=== PATIENT | male | born 1990 | race Caucasian/White ===

== ENCOUNTER 2019-06-30 16:31 | Observation (INO) | payer OTHER ==
[2019-06-30 18:08] LABS: BASO % 0.5 % (0-2.0); EOS % 0.4 % (0-4.5); HEMATOCRIT 43.3 % (35.4-49); HEMOGLOBIN 14.4 GM/dL (11.7-16.9); LYMPH % 10.8 % (8-40); MCH 30.2 pg (25.7-33.7); MCHC 33.3 g/dl (32.0-35.9); MEAN CELL VOLUME 90.6 fl (80-96); MEAN PLT VOLUME 8.4 fl (7.5-11.1); MONO % 6.8 % (3.8-10.2); NEUT % 81.5 % (42.8-82.8); PLATELET COUNT 218 K/MM3 (134-434); RBC 4.78 M/mm3 (4.00-5.60); RDW 13.5 % (11.9-15.9); WHITE BLOOD COUNT 11.8 K/mm3 (4.0-10.0)
--- NOTE | 2019-06-30 18:11 | PDOC ---
History of Present Illness - General Chief Complaint: Syncope/Near Syncope Stated Complaint: POSSIBLE SEIZURE Time Seen by Provider: 06/30/19 17:23 History Source: Patient, Family (Mother at bedside.) Exam Limitations: No Limitations - History of Present Illness Initial Comments: HPI: 29 y/o male presenting to [facility] ER from home after witnessed syncopal episode. Mother (at bedside) reports she and her son were eating dinner when he suddenly fell backward off the bar stool. His eyes rolled back in his head and closed. Did not observed any shaking of extremities, urinary incontinence, or fecal incontinence. Appeared to lose muscle tone. Unconscious for an estimated 1 min before immediately returning to baseline; alert and oriented. Able to stand and transition to the EMS stretcher. Pt denies any prodromal symptoms. Denies tongue trauma, nausea, vomiting, chest pain, or shortness of breath. At time of interview, the pts only complaint is pain to his occiput where he struck his head. Denies neck pain. Mother reports the pt had another episode that we call a seizure several years ago, which was believed to be secondary to a psychiatric medication adverse reaction. Social Hx: - EtoH: Drank 3 liquor drinks today - Street Drugs: Smoked marijuana approx. 15 min prior to episode - Caffeine: drank one beverage today - Denies OTC vitamins or supplements Family Hx: - No h/o seizures - No h/o cardiac arrhythmias - No h/o sudden before age 34 - No h/o sudden while swimming Medical Hx: - Bipolar disorder, managed with Risperdal injection, no change in dose, last injection approx. 1 month ago Surgical Hx: - No past surgical history Review of Systems: In addition to that documented in the HPI above, the additional ROS was obtained : Constitutional- Denies fevers or chills Head- Denies vision changes ENMT- Denies sore throat CV- Denies chest pain Resp- Denies SOB GI- Denies abdominal pain, vomiting, or diarrhea - Denies painful urination MSK- Endorses pain to back of head Skin- Denies new rashes Neuro- Denies new numbness or tingling or weakness Endocrine- Denies polyuria Heme- Denies bleeding or bruising Physical Examination: Vital signs and nursing notes reviewed. Constitutional- Well-developed, well-nourished adult male in no acute distress or obvious discomfort. Found semi-fowlers on hospital bed. Answered all questions appropriately and completely. Head- Normocephalic. Superficial abrasion to occiput. No active bleeding. Eyes- Pupils PERRL. EOMI. Sclerae white. Conjunctiva moist and not injected. Ears- Hearing grossly intact. Nose- No nasal discharge. Throat- Oral cavity and pharynx normal. No tongue trauma. No inflammation, swelling, exudate, or lesions. Teeth and gingiva in poor general condition. Neck- Supple, trachea is midline. No c-spine tenderness. Pt able to laterally rotate neck to left and right without difficulty or pain. Cardiovascular / Chest- Regular rate and regular rhythm. No murmur, rubs, clicks , or gallops. Peripheral pulses- radial pulses full. Respiratory- Breathing unlabored. Equal chest rise and fall. Clear to auscultation bilaterally. No stridor, no wheezing, no rhonchi. Gastrointestinal- abdomen is soft, non-tender, non-distended. Neuro- Alert and oriented x4. Moving all four extremities spontaneously. No facial asymmetry. No slurred speech. No upper or lower extremity drift. Cranial nerves intact. Sensation to all four extremities intact. Proximal and distal strength 5/5. Inspector Returned Materials strength 5/5 - equal and symmetric. Plantar flexion and dorsiflexion 5/5. No nuchal rigidity. Skin- Warm, dry, and intact. Psych- Affect- appropriate. Mood- normal. Speech was non-labored, non- pressured. MDM: 29 y/o male presenting with drop syncope. No h/o of similar. Afebrile. Vitals unremarkable for hypotension or tachycardia. Physical exam as described above. Low suspicion for seizure based on description by witness. Concern for possible cardiac arrhythmia given lack of prodromal symptoms. EKG unremarkable for ischemic findings, prolonged QTc, shortened LA interval, or delta waves. Troponin not elevated. No significant electrolyte derangement, anemia, or leukocytosis. 30 Jun 2019 19:00 PM Pt signed out to resident Dr. Ziegler after he was verbally appraised of the pts HPI, current ED course, and plan of management. Will f/u pending HCT. Anticipate admission for telemetry monitoring. Nelson Galeana M.D., PGY2 Emergency Medicine Resident Past History - Past Medical History Allergies/Adverse Reactions: Allergies Allergy/AdvReac Type Severity Reaction Status Date / Time No Known Allergies Allergy Verified 06/30/19 18:42 Home Medications: Ambulatory Orders Risperdal MONTHLY 06/30/19 COPD: No Psychiatric Problems: Yes (bipolar) - Immunization History Immunization Up to Date: Yes - Psycho Social/Smoking Cessation Hx Smoking History: Never smoked Have you smoked in the past 12 months: No Information on smoking cessation initiated: No Hx Alcohol Use: Yes (occasional) Drug/Substance Use Hx: Yes (occasional marijuana use) *Physical Exam - Vital Signs Last Vital Signs Temp Pulse Resp BP Pulse Ox 98.1 F 91 H 18 118/74 99 06/30/19 16:39 06/30/19 16:39 06/30/19 16:39 06/30/19 16:39 06/30/19 16:39 ED Treatment Course - LABORATORY CBC & Chemistry Diagram: 06/30/19 18:01 06/30/19 18:01 - RADIOLOGY Radiology Studies Ordered: Category Date Time Status HEAD CT WITHOUT CONTRAST [CT] Stat CT Scan 06/30/19 17:45 Ordered Discharge - Discharge Information Problems reviewed: Yes Clinical Impression/Diagnosis: Syncope and collapse Head injury due to trauma Qualifiers: Encounter type: initial encounter Qualified Code(s): S09.90XA - Unspecified injury of head, initial encounter Condition: Stable - Follow up/Referral - Patient Discharge Instructions - Post Discharge Activity
[2019-06-30 18:48] LABS: ALBUMIN 4.1 g/dl (3.4-5.0); ALK PHOS 56 U/L (45-117); ANION GAP 7 MMOL/L (8-16); BILIRUBIN,TOTAL 0.4 mg/dL (0.2-1); BLOOD UREA NITROGEN 10.3 mg/dL (7-18); CALCIUM 8.6 mg/dL (8.5-10.1); CHLORIDE 111 mmol/L (98-107); CO2 24 mmol/L (21-32); GLUCOSE,RANDOM 98 mg/dL (74-106); SGOT/AST 19 U/L (15-37); SGPT/ALT 23 U/L (13-61); SODIUM 142 mmol/L (136-145); TOT PROT 6.9 g/dl (6.4-8.2)
--- NOTE | 2019-06-30 19:17 | PDOC ---
ED Treatment Course - LABORATORY CBC & Chemistry Diagram: 06/30/19 18:01 06/30/19 18:01 Medical Decision Making - Medical Decision Making Pt signed out to me by Dr. Galeana, appreciate prior note. 29 yo male with PMH bipolar disorder presented to ED for witnessed syncopal event. It was reported pt drank 3 alcoholic beverages and smoked weed, then had a witness syncopal event lasting 1 minute. It was reported pt was not postictal , no tongue biting, no loss of bowel/bladder. Initial Vital Signs Temp Pulse Resp BP Pulse Ox 98.1 F 91 H 18 118/74 99 06/30/19 16:39 06/30/19 16:39 06/30/19 16:39 06/30/19 16:39 06/30/19 16:39 Afebrile No tachycardia No tachypnea No hypotension No hypoxia on room air EKG was interpreted by prior resident, sinus rhythm. Laboratory Last Values WBC 11.8 K/mm3 (4.0-10.0) H 06/30/19 18:01 RBC 4.78 M/mm3 (4.00-5.60) 06/30/19 18:01 Hgb 14.4 GM/dL (11.7-16.9) 06/30/19 18:01 Hct 43.3 % (35.4-49) 06/30/19 18:01 MCV 90.6 fl (80-96) 06/30/19 18:01 MCH 30.2 pg (25.7-33.7) 06/30/19 18:01 MCHC 33.3 g/dl (32.0-35.9) 06/30/19 18:01 RDW 13.5 % (11.9-15.9) 06/30/19 18:01 Plt Count 218 K/MM3 (134-434) 06/30/19 18:01 MPV 8.4 fl (7.5-11.1) 06/30/19 18:01 Absolute Neuts (auto) 9.6 K/mm3 (1.5-8.0) H 06/30/19 18:01 Neutrophils % 81.5 % (42.8-82.8) 06/30/19 18:01 Lymphocytes % 10.8 % (8-40) 06/30/19 18:01 Monocytes % 6.8 % (3.8-10.2) 06/30/19 18: Eosinophils % 0.4 % (0-4.5) 06/30/19 18: Basophils % 0.5 % (0-2.0) 06/30/19 18:01 Nucleated RBC % 0 % (0-0) 06/30/19 18:01 Sodium 142 mmol/L (136-145) 06/30/19 18:01 Potassium 4.0 mmol/L (3.5-5.1) 06/30/19 18:01 Chloride 111 mmol/L (98-107) H 06/30/19 18:01 Carbon Dioxide 24 mmol/L (21-32) 06/30/19 18:01 Anion Gap 7 MMOL/L (8-16) L 06/30/19 18:01 BUN 10.3 mg/dL (7-18) 06/30/19 18:01 Creatinine 1.0 mg/dL (0.55-1.3) 06/30/19 18:01 Est GFR (CKD-EPI)AfAm 116.54 06/30/19 18:01 Est GFR (CKD-EPI)NonAf 100.55 06/30/19 18:01 Random Glucose 98 mg/dL (74-106) 06/30/19 18:01 Calcium 8.6 mg/dL (8.5-10.1) 06/30/19 18:01 Total Bilirubin 0.4 mg/dL (0.2-1) 06/30/19 18:01 AST 19 U/L (15-37) 06/30/19 18:01 ALT 23 U/L (13-61) 06/30/19 18:01 Alkaline Phosphatase 56 U/L (45-117) 06/30/19 18:01 Troponin I 0.02 ng/ml (0.00-0.05) 06/30/19 18:01 Total Protein 6.9 g/dl (6.4-8.2) 06/30/19 18:01 Albumin 4.1 g/dl (3.4-5.0) 06/30/19 18:01 Alcohol, Quantitative < 3 mg/dL (0.0-5.0) 06/30/19 18:[address] head, CXR. To be admitted obs for syncopal episode. 06/30/19 19:56 CT head report: Referring Physician: BISHOP BYRNE Comments: Alfred Rogers MD wrote on Jun 30, 2019 at 07:50 PM: Referring Physician: BISHOP BYRNE Patient Name: NEELA GARCIA THIS IS A PRELIMINARY REPORT FROM [facility] DATE OF SERVICE: 2019-06-30 19:02:51 IMAGES: 232 EXAM: CT HEAD WITHOUT IV CONTRAST TECHNIQUE: Axial images from the skull base to the vertex. Bone and soft tissue windows were reviewed. One or more of the following dose reduction techniques were used: automated exposure control, adjustment of the mA and/or kV according to patient size, use of iterative reconstructive technique. Contrast: None REASON FOR EXAM: Syncope. COMPARISON: None. FINDINGS: The brain parenchymal architecture appears normal, with preservation of the gauthier -white differentiation. There is no acute intracranial hemorrhage, mass effect or midline shift. No abnormal intra-axial or extra-axial fluid collection is seen. The periventricular white matter is unremarkable. The ventricles and basilar cisterns are maintained. The bones of the calvarium and imaged skull base demonstrate no acute abnormality. The imaged paranasal sinuses and mastoid air cells : Unremarkable. IMPRESSION: 1. No acute territorial infarct, hemorrhage, or space-occupying mass. One or more of the following dose reduction techniques were used: automated exposure control, adjustment of the mA and/or kV according to patient size, use of iterative reconstructive technique. Alfred Rogers MD 06/30/2019 19:49 EST MAshantiD. Please call [facility] [phone]) with questions. Alfred Rogers MD Clinicians - Please contact [facility] with further questions at [phone]) Patients - Please contact your Ordering Provider with questions CXR my view: sharp costophrenic angles. no cardiomegaly. no infiltrate. no large pneumothorax. -Pending official report 06/30/19 21:[address] Newell, Resident. Pending admission. Discharge - Discharge Information Problems reviewed: Yes Clinical Impression/Diagnosis: Syncope and collapse Head injury due to trauma Qualifiers: Encounter type: initial encounter Qualified Code(s): S09.90XA - Unspecified injury of head, initial encounter Condition: Stable - Admission Yes - Follow up/Referral - Patient Discharge Instructions - Post Discharge Activity
--- NOTE | 2019-06-30 19:33 | PDOC ---
*Physical Exam - Vital Signs Last Vital Signs Temp Pulse Resp BP Pulse Ox 98.0 F 66 20 117/73 100 06/30/19 18:45 06/30/19 18:45 06/30/19 18:45 06/30/19 18:45 06/30/19 18:45 ED Treatment Course - LABORATORY CBC & Chemistry Diagram: 07/01/19 06:00 07/01/19 06:00 - ADDITIONAL ORDERS Additional order review: Laboratory Results 06/30/19 06/30/19 18:01 18:01 Sodium 142 Potassium 4.0 Chloride 111 H Carbon Dioxide 24 Anion Gap 7 L BUN 10.3 Creatinine 1.0 Est GFR (CKD-EPI)AfAm 116.54 Est GFR (CKD-EPI)NonAf 100.55 Random Glucose 98 Calcium 8.6 Total Bilirubin 0.4 AST 19 ALT 23 Alkaline Phosphatase 56 Troponin I 0.02 Total Protein 6.9 Albumin 4.1 Alcohol, Quantitative < 3 06/30/19 18:01 RBC 4.78 MCV 90.6 MCHC 33.3 RDW 13.5 MPV 8.4 Neutrophils % 81.5 Lymphocytes % 10.8 Monocytes % 6.8 Eosinophils % 0.4 Basophils % 0.5 Medical Decision Making - Medical Decision Making 06/30/19 19:33 received pt on signout for syncope; labs normal; CT head and CXR pending 06/30/19 20:00 Patient Name: NEELA GARCIA THIS IS A PRELIMINARY REPORT FROM [facility] DATE OF SERVICE: 2019-06-30 19:02:51 IMAGES: 232 EXAM: CT HEAD WITHOUT IV CONTRAST TECHNIQUE: Axial images from the skull base to the vertex. Bone and soft tissue windows were reviewed. One or more of the following dose reduction techniques were used: automated exposure control, adjustment of the mA and/or kV according to patient size, use of iterative reconstructive technique. Contrast: None REASON FOR EXAM: Syncope. COMPARISON: None. FINDINGS: The brain parenchymal architecture appears normal, with preservation of the gauthier -white differentiation. There is no acute intracranial hemorrhage, mass effect or midline shift. No abnormal intra-axial or extra-axial fluid collection is seen. The periventricular white matter is unremarkable. The ventricles and basilar cisterns are maintained. The bones of the calvarium and imaged skull base demonstrate no acute abnormality. The imaged paranasal sinuses and mastoid air cells : Unremarkable. IMPRESSION: 1. No acute territorial infarct, hemorrhage, or space-occupying mass. CXR is normal Pt will be signed out to the [facility] for admission Discharge - Discharge Information Problems reviewed: Yes Clinical Impression/Diagnosis: Syncope and collapse Head injury due to trauma Qualifiers: Encounter type: initial encounter Qualified Code(s): S09.90XA - Unspecified injury of head, initial encounter Condition: Stable Disposition: HOME - Follow up/Referral - Patient Discharge Instructions - Post Discharge Activity
--- NOTE | 2019-06-30 20:48 | PN ---
Teaching Attending Note Name of Resident: iGanna Newell ATTENDING PHYSICIAN STATEMENT I saw and evaluated the patient. I reviewed the resident's note and discussed the case with the resident. I agree with the resident's findings and plan as documented. SUBJECTIVE: Ppatient is a 29 year old man with a PMH of Bipolar disorder who presents to the ER for occipital headache after a possible seizure. Mother notes the patient was sitting on the bar stool, eating dinner, when his eyes rolled back and patient fell backwards. Mother notes the patient woke up 1 minute later, was quiet but at baseline. Mother notes patient had 1 previous seizure in the past that was related to his medication. Patient reports having several alcoholic beverages and smoking marijuana today. Patient was able to ambulate into the EMS car. Mother denies any tongue biting, incontinence, or postictal period.The patient denies chest pain, shortness of breath, dizziness, fever, chills, cough, nausea, vomiting, diarrhea, constipation, dysuria, frequency, urgency or hematuria. No recent travel or sick contacts. OBJECTIVE: Alert and not orthostatic Vital Signs Period Temp Pulse Resp BP Sys/Boyd Pulse Ox Last 24 Hr 97.8 F-98.1 F 62-91 17-20 115-118/71-74 99-100 HEENT: No Jaundice, eye redness or discharge, PERRLA, EOMI. Normocephalic, atraumatic. External ears are normal and hearing is grossly intact. No nasal discharge. Neck: Supple, nontender. No palpable adenopathy or thyromegaly. No JVD Chest: Good effort. Clear to auscultation and percussion. Heart: Regular. No S3, rub or murmur Abdomen: Not distended, soft, nontender and no HSM. No rebound or guarding. Normal bowel sounds. Ext: Peripheral pulses intact. No leg edema. Skin: Warm and dry. No petechiae, rash or ecchymosis. Neuro: Alert. Oriented x3. CN 2-12 grossly intact. Sensation grossly intact in all four extremities and DTR are symmetric. Psych: Appropriate mood and affect. Good insight. Home Medications Medication Instructions Recorded Risperdal MONTHLY 06/30/19 Abnormal Lab Results 06/30/19 06/30/19 18:01 18:01 WBC 11.8 H Absolute Neuts (auto) 9.6 H Chloride 111 H Anion Gap 7 L ASSESSMENT AND PLAN: 1. Syncope - Etiology unclear. CXR shows cardiomegaly with no acute infiltrates. No acute abnormality on head CT. Urinalysis and urine toxicology pending. EKG shows NSR with no acute ST-T wave changes. Will admit to telemetry, get ECHO , carotid doppler, EEG, brain MRI, Neurology consult and implement fall/seizure precautions. Repeat CBC - leukocytosis likely due to stress. Will continue comprehensive care for all of patients comorbid conditions. 2. Obesity Counseled on the risks associated with obesity. Will provide patient all the necessary assistance, counseling and positive reinforcement to facilitate weight loss. Consult processing analyst. 3. Alcohol abuse - Implement [facility] alcohol withdrawal protocol and do neurochecks. Implement seizure, fall and aspiration precautions. Treat with thiamine and folic acid and monitor electrolytes (Ca,Mg,K,P). Counseled patient about abstaining from alcohol. Will consult party supply specialist and refer to alcohol detox upon discharge. 4. DVT prophylaxis - Lovenox 40 mg SQ q 24 hours. 5. Advance directives - Full code
--- NOTE | 2019-06-30 22:56 | HP ---
CHIEF COMPLAINT: Syncope PCP: HISTORY OF PRESENT ILLNESS: 29 y/o M with PMHx of Bipolar disorder presents after a syncopal episode. Patient woke in his usual state of health and has been tolerating PO Intake without any difficulty. This AM, he visited his brother who is an inmate at [facility]. He mentions his visit was not stressful and upon arriving home this evening, he had 3 shots of Rum within 10 minutes. He then sat on a bar stool and while eating, he suddenly closed his eyes and fell backwards. His mother was sitting across from him and witnessed the event; she was present at bedside to provide details. Mother mentions that patient was out for approx 2 minutes and then regained consciousness without without any postictal state. Denies any tonic clonic movements, loss of bowel/bladder control or tongue biting. Mother witnessed some blood on the floor surrounding patients head (unable to quantify amount) prompting her to alert EMS. Patient says this is the 1st time this has happened to him. Denies any associated medication changes or sick contacts. Denies any fevers, chills, chest pain, SOB, nausea, vomiting, diarrhea, constipation. ER course was notable for: (1) (2) (3) Recent Travel: Denies PAST MEDICAL HISTORY: As above PAST SURGICAL HISTORY: Tonsils Social History: Smokin cig's daily Alcohol: Occasional Drugs: Marijuana 3x weekly Residence: With mother Occupation: Unemployed Allergies No Known Allergies Allergy (Verified 06/30/19 18:42) HOME MEDICATIONS: Home Medications Medication Instructions Recorded Risperdal MONTHLY 06/30/19 REVIEW OF SYSTEMS As per HPI PHYSICAL EXAMINATION Vital Signs - 24 hr 06/30/19 06/30/19 06/30/19 16:39 18:24 18:45 Temperature 98.1 F 97.8 F 98.0 F Pulse Rate 91 H 91 H Pulse Rate [ 91 H 66 Right Radial] Respiratory 18 18 20 Rate Blood Pressure 118/74 Blood Pressure 118/74 117/73 [Left Arm] O2 Sat by Pulse 99 99 100 Oximetry (%) 06/30/19 20:57 Temperature 97.9 F Pulse Rate Pulse Rate [ 62 Right Radial] Respiratory 17 Rate Blood Pressure Blood Pressure 115/71 [Left Arm] O2 Sat by Pulse 99 Oximetry (%) GENERAL: A&Ox3, NAD HEAD: NCAT EYES: PERRL, EOMI EARS, NOSE, THROAT: Moist mucous membranes. NECK: No JVD LUNGS: CTAB, No wheezes, no crackles HEART: Regular rate and rhythm, normal S1 and S2 without murmur ABDOMEN: Soft, nontender, not distended, + bowel sounds, no guarding MUSCULOSKELETAL: No CVA tenderness. EXTREMITIES: No peripheral edema. NEUROLOGICAL: Cranial nerves II-XII intact. Normal speech. SKIN: Warm, dry Laboratory Results - last 24 hr 06/30/19 06/30/19 06/30/19 18:01 18:01 18:01 WBC 11.8 H RBC 4.78 Hgb 14.4 Hct 43.3 MCV 90.6 MCH 30.2 MCHC 33.3 RDW 13.5 Plt Count 218 MPV 8.4 Absolute Neuts (auto) 9.6 H Neutrophils % 81.5 Lymphocytes % 10.8 Monocytes % 6.8 Eosinophils % 0.4 Basophils % 0.5 Nucleated RBC % 0 Sodium 142 Potassium 4.0 Chloride 111 H Carbon Dioxide 24 Anion Gap 7 L BUN 10.3 Creatinine 1.0 Est GFR (CKD-EPI)AfAm 116.54 Est GFR (CKD-EPI)NonAf 100.55 Random Glucose 98 Calcium 8.6 Total Bilirubin 0.4 AST 19 ALT 23 Alkaline Phosphatase 56 Troponin I 0.02 Total Protein 6.9 Albumin 4.1 Alcohol, Quantitative < 3 ASSESSMENT/PLAN: 29 y/o M with PMHx of Bipolar disorder presents after a syncopal episode. #Syncope -Unclear etiology; Possibly cardiac vs neuro in nature -Trop, CTH Noncon Negative -EKG reveals NSR, VR 72, QTc 394 -Tele -Check UA, UTox, Echo, Carotid dopplers, Brain MRI without contrast -Neuro checks, Fall/seizure precautions -Continue NS @ 42 -Fall/Seizure precautions #FEN -NS @ 75 -Replete lytes PRN -Regular diet #PPx -DVT: Lovenox ATTENDING PHYSICIAN STATEMENT I saw and evaluated the patient. I reviewed the resident's note and discussed the case with the resident. I agree with the resident's findings and plan as documented. SUBJECTIVE: OBJECTIVE: ASSESSMENT AND PLAN:
[2019-06-30 23:19] VITALS: BMI 32.6
[2019-07-01] MEDS ORDERED: SODIUM CHLORIDE 1,000 ML IV SCH (03:00)
[2019-07-01 07:06] LABS: BASO % 0.5 % (0-2.0); EOS % 2.1 % (0-4.5); HEMATOCRIT 38.9 % (35.4-49); HEMOGLOBIN 13.6 GM/dL (11.7-16.9); LYMPH % 24.5 % (8-40); MCH 30.9 pg (25.7-33.7); MCHC 34.9 g/dl (32.0-35.9); MEAN CELL VOLUME 88.4 fl (80-96); MEAN PLT VOLUME 8.6 fl (7.5-11.1); MONO % 10.6 % (3.8-10.2); NEUT % 62.3 % (42.8-82.8); PLATELET COUNT 213 K/MM3 (134-434); RDW 12.9 % (11.9-15.9); WHITE BLOOD COUNT 7.5 K/mm3 (4.0-10.0)
[2019-07-01 07:10] LABS: ALBUMIN 3.7 g/dl (3.4-5.0); BLOOD UREA NITROGEN 8.1 mg/dL (7-18); CALCIUM 8.5 mg/dL (8.5-10.1); MAGNESIUM 2.1 mg/dL (1.8-2.4); PHOSPHOROUS 3.4 mg/dL (2.5-4.9); POTASSIUM 3.5 mmol/L (3.5-5.1); TOT PROT 6.4 g/dl (6.4-8.2)
[2019-07-01] MEDS ORDERED: ENOXAPARIN NA (PORCINE) 40 MG/0.4 ML DISP.SYRIN SQ SCH (10:00)
--- NOTE | 2019-07-01 15:05 | PN ---
Physical Exam: SUBJECTIVE: Patient seen and examined, no dizziness or complaints. Tolerating diet well. ambulating in the hospital. OBJECTIVE: Vital Signs Period Temp Pulse Resp BP Sys/Boyd Pulse Ox Last 24 Hr 97.6 F-98.1 F 58-91 17-20 111-133/71-89 96-100 Intake & Output 06/28/19 06/29/19 06/30/19 07/01/19 23:59 23:59 23:59 23:59 Intake Total 345 Balance 345 Weight 240 lb 9 oz GENERAL: lying in bed in no acute distress neck: soft, supple Chest: CTAB, no rales or wheezing Abdomen:soft, NT Extremities: no edema neuro: AAOx3, power 5/5, sensation intact to light touch, no pronator drift, tongue midline, PERRL, EOMI, facial symmetry, tongue midline Laboratory Results - last 24 hr 06/30/19 06/30/19 06/30/19 18:01 18:01 18:01 WBC 11.8 H RBC 4.78 Hgb 14.4 Hct 43.3 MCV 90.6 MCH 30.2 MCHC 33.3 RDW 13.5 Plt Count 218 MPV 8.4 Absolute Neuts (auto) 9.6 H Neutrophils % 81.5 Lymphocytes % 10.8 Monocytes % 6.8 Eosinophils % 0.4 Basophils % 0.5 Nucleated RBC % 0 Sodium 142 Potassium 4.0 Chloride 111 H Carbon Dioxide 24 Anion Gap 7 L BUN 10.3 Creatinine 1.0 Est GFR (CKD-EPI)AfAm 116.54 Est GFR (CKD-EPI)NonAf 100.55 Random Glucose 98 Calcium 8.6 Phosphorus Magnesium Total Bilirubin 0.4 AST 19 ALT 23 Alkaline Phosphatase 56 Troponin I 0.02 Total Protein 6.9 Albumin 4.1 Alcohol, Quantitative < 3 07/01/19 07/01/19 06:00 06:00 WBC 7.5 RBC 4.40 Hgb 13.6 Hct 38.9 MCV 88.4 MCH 30.9 MCHC 34.9 RDW 12.9 Plt Count 213 MPV 8.6 Absolute Neuts (auto) 4.7 Neutrophils % 62.3 D Lymphocytes % 24.5 D Monocytes % 10.6 H Eosinophils % 2.1 D Basophils % 0.5 Nucleated RBC % 0 Sodium 142 Potassium 3.5 Chloride 109 H Carbon Dioxide 27 Anion Gap 6 L BUN 8.1 Creatinine 1.0 Est GFR (CKD-EPI)AfAm 116.54 Est GFR (CKD-EPI)NonAf 100.55 Random Glucose 87 Calcium 8.5 Phosphorus 3.4 Magnesium 2.1 Total Bilirubin 1.0 AST 13 L ALT 22 Alkaline Phosphatase 54 Troponin I Total Protein 6.4 Albumin 3.7 Alcohol, Quantitative Active Medications Generic Name Dose Route Start Last Admin Trade Name Freq PRN Reason Stop Dose Admin Enoxaparin Sodium 40 mg 07/01/19 10:00 07/01/19 09:17 Lovenox - SQ 40 mg DAILY BHARGAV Administration Sodium Chloride 1,000 mls @ 75 mls/hr 07/01/19 03:00 07/01/19 03:30 Normal Saline - IV 75 mls/hr ASDIR BHARGAV Administration ASSESSMENT/PLAN: 29 yom with PMHx of bipolar disorder admitted with witnessed syncope -Witnessed syncope -ETOH use -Cannabis use -Bipolar disorder Plan: Suspect episode in the setting of ETOH/marihuana, will fall and resultant concussion rather than true syncope. ?seizure, however no postictal confusion, urinary or bowel incontinence. MRI brain results noted. Discussed with Dr. Layne, cannot r/o early demyelination. Unlikely to explain current episode on admission. However, will get neurology input. ETOH/cannabis cessation counseling provided. Gentle hydration DVTPPX lovenox Dispo dc home in 24 hours pending neurology input if no new concerns. Discussed with patient and nursing. Visit type - Emergency Visit Emergency Visit: Yes ED Registration Date: 06/30/19 Care time: The patient presented to the Emergency Department on the above date and was hospitalized for further evaluation of their emergent condition. - New Patient This patient is new to me today: Yes Date on this admission: 07/01/19 - Critical Care Critical Care patient: No - Discharge Referral Referred to [facility] Med [facility] No
--- NOTE | 2019-07-01 16:43 | CON.NEURO ---
Consult - Alcohol/Substance Use Hx Alcohol Use: Yes (occasional) - Smoking History Smoking history: Current some day smoker Have you smoked in the past 12 months: Yes Aproximately how many cigarettes per day: 5 Home Medications - Allergies Allergies/Adverse Reactions: Allergies Allergy/AdvReac Type Severity Reaction Status Date / Time No Known Allergies Allergy Verified 06/30/19 18:42 - Home Medications Home Medications: Ambulatory Orders Risperdal MONTHLY 06/30/19 Physical Exam-Neuro Vital Signs: Vital Signs Temperature 98.2 F 07/01/19 14:10 Pulse Rate 57 L 07/01/19 14:10 Respiratory Rate 18 07/01/19 14:10 Blood Pressure 116/78 07/01/19 14:10 O2 Sat by Pulse Oximetry (%) 98 07/01/19 14:00 Labs: CBC, BMP 07/01/19 06:00 07/01/19 06:00 Assessment/Plan CC Episode of passing out HPI 29 year old male history of bipolar disorder. Patient came to see his brother at detention . He had three shot of gin and was sitting and suddenly he collapsed. Patient denies any headahce , dysphagia, dysarthria, dipolopi. There was no motor weakness or sensory loss Patinet denies any headhace, fever, cancer, or bleeding. He did not have any history fo seizure, fever or other focal neurological symptoms. PAST MEDICAL HISTORY: As above PAST SURGICAL HISTORY: Tonsils Social History: Smokin cig's daily Alcohol: Occasional Drugs: Marijuana 3x weekly Residence: With mother Occupation: Unemployed Allergies No Known Allergies Allergy (Verified 06/30/19 18:42) HOME MEDICATIONS: Home Medications Medication Instructions Recorded Risperdal MONTHLY 06/30/19 ROS,FH,SH reviewed in chart NEUROLOGICAL EXAMINATION Alert oriented x 3 , neck is supple eomi, puipls reactive no face asymmetry moving all ext sensation is normal ct head is unremarkable mri of brain showed small area of encephalomalacia Assessment /Plan 29 year old male history of bipolar disorder came with episode of passing out. Most likley syncopal episode, less likley to be seizure. MRI of brain findings suggestive of old head injury or migraine, clinically unlikely to be a seizure episode Plan: no need for aed for now 2. seizure precauations 3. an eeg can be obtained follow up outpatient, patient can be discharged tracy Grayson Rubio MD
--- NOTE | 2019-07-01 18:13 | DS ---
Physical Exam: SUBJECTIVE: Patient seen and examined, no complaints. OBJECTIVE: Vital Signs Period Temp Pulse Resp BP Sys/Boyd Pulse Ox Last 24 Hr 97.6 F-98.2 F 57-91 17-20 111-133/71-89 96-100 PHYSICAL EXAM GENERAL: The patient is awake, alert, and fully oriented, in no acute distress. HEAD: Normal with no signs of trauma. EYES: PERRL, extraocular movements intact, sclera anicteric, conjunctiva clear. ENT: Ears normal, nares patent, oropharynx clear without exudates, moist mucous membranes. NECK: Trachea midline, full range of motion, supple. LUNGS: Breath sounds equal, clear to auscultation bilaterally, no wheezes, no crackles, no accessory muscle use. HEART: Regular rate and rhythm, S1, S2 without murmur, rub or gallop. ABDOMEN: Soft, nontender, nondistended, normoactive bowel sounds, no guarding, no rebound, no hepatosplenomegaly, no masses. EXTREMITIES: 2+ pulses, warm, well-perfused, no edema. NEUROLOGICAL: Cranial nerves II through XII grossly intact. Normal speech, gait not observed. PSYCH: Normal mood, normal affect. SKIN: Warm, dry, normal turgor, no rashes or lesions noted. LABS Laboratory Results - last 24 hr 06/30/19 06/30/19 06/30/19 18:01 18:01 18:01 WBC 11.8 H RBC 4.78 Hgb 14.4 Hct 43.3 MCV 90.6 MCH 30.2 MCHC 33.3 RDW 13.5 Plt Count 218 MPV 8.4 Absolute Neuts (auto) 9.6 H Neutrophils % 81.5 Lymphocytes % 10.8 Monocytes % 6.8 Eosinophils % 0.4 Basophils % 0.5 Nucleated RBC % 0 Sodium 142 Potassium 4.0 Chloride 111 H Carbon Dioxide 24 Anion Gap 7 L BUN 10.3 Creatinine 1.0 Est GFR (CKD-EPI)AfAm 116.54 Est GFR (CKD-EPI)NonAf 100.55 Random Glucose 98 Calcium 8.6 Phosphorus Magnesium Total Bilirubin 0.4 AST 19 ALT 23 Alkaline Phosphatase 56 Troponin I 0.02 Total Protein 6.9 Albumin 4.1 Alcohol, Quantitative < 3 07/01/19 07/01/19 06:00 06:00 WBC 7.5 RBC 4.40 Hgb 13.6 Hct 38.9 MCV 88.4 MCH 30.9 MCHC 34.9 RDW 12.9 Plt Count 213 MPV 8.6 Absolute Neuts (auto) 4.7 Neutrophils % 62.3 D Lymphocytes % 24.5 D Monocytes % 10.6 H Eosinophils % 2.1 D Basophils % 0.5 Nucleated RBC % 0 Sodium 142 Potassium 3.5 Chloride 109 H Carbon Dioxide 27 Anion Gap 6 L BUN 8.1 Creatinine 1.0 Est GFR (CKD-EPI)AfAm 116.54 Est GFR (CKD-EPI)NonAf 100.55 Random Glucose 87 Calcium 8.5 Phosphorus 3.4 Magnesium 2.1 Total Bilirubin 1.0 AST 13 L ALT 22 Alkaline Phosphatase 54 Troponin I Total Protein 6.4 Albumin 3.7 Alcohol, Quantitative HOSPITAL COURSE: Date of Admission:06/30/19 Date of Discharge: 07/01/19 Minutes to complete discharge: 42 Discharge Summary Problems reviewed: Yes Reason For Visit: SYNCOPE AND COLLAPSE Current Active Problems 29 yom with PMHx of bipolar disorder admitted with witnessed syncope -Witnessed syncope -ETOH use -Cannabis use -Bipolar disorder Hospital Course: 29 yom with PMHx of bipolar disorder admitted with witnessed syncope. patient reports having 3 shots of rum, smoking marihuana, was on a bar stool about to have dinner, when was noted by mother to fall backwards with reported LOC of 1 minute with no shaking, incontinence, tongue bite or post episode confusion. He woke up at his baseline, was asymptomatic throughout his hospital stay. he had CT head negative for concerns. He had MRI brain showing small are of gliosis, raising concern for demyelination. He was seen by neurology and recommended outpatient follow up for EEG and additional testing. He was watched on telemetry with no concerns, carotid duplex was negative for significant stenosis and is advised outpatient follow up for 2D echocardiogram. ETOH/cannabis cessation counseling was provided and advised to avoid driving, operating heavy machinery or being alone on heights/with children or in water till seen by neurologist and he relayed full understanding of the same. He will be discharged in stable condition with outpatient follow up as above. Condition: Stable - Instructions Diet, Activity, Other Instructions: Instructions: No driving, operating heavy machinery and avoid heights or being alone with children and avoid being in water alone till seen by neurologist outpatient Strongly recommend ETOH and marihuana cessation Drink plenty of fluids Outpatient follow up with medical doctor ([facility] clinic information provided and PCP's info provided) Outpatient follow up with neurologist (discuss outpatient EEG) Your MRI brain was reviewed by neurologist and you will need follow up in the office in 1-2 weeks FOLLOW UP: With primary care provider ([facility] [place] [facility] (info provided) or referral to doctors provided (discuss further testing including 2D echocardiogram) With neurologist Dr. Rubio (discuss outpatient EEG studies and further testing for your MRI brain results) If you have similar episodes or any new concerns, please call 911 or come to ED. Referrals: Grayson Rubio MD [Staff Physician] - Gavino Pabon MD [Staff Physician] - Timur Mandel MD [Staff Physician] - Disposition: HOME - Home Medications Comprehensive Discharge Medication List: Ambulatory Orders Risperdal MONTHLY 06/30/19 This patient is new to me today: Yes Date on this admission: 07/01/19 Emergency Visit: Yes ED Registration Date: 06/30/19 Care time: The patient presented to the Emergency Department on the above date and was hospitalized for further evaluation of their emergent condition. Critical Care patient: No - Discharge Referral Referred to [facility] Yes Physician Referral: Timur Mandel MD (Int Med)
--- NOTE | 2019-07-01 18:36 | EKG ---
Test Reason : Blood Pressure : / mmHG Vent. Rate : 062 BPM Atrial Rate : 062 BPM P-R Int : 182 ms QRS Dur : 096 ms QT Int : 438 ms P-R-T Axes : 043 020 010 degrees QTc Int : 444 ms UNDETERMINED RHYTHM OTHERWISE NORMAL ECG NO PREVIOUS ECGS AVAILABLE Confirmed by GIBSON MEDINA MD ([id number]) on 07/01/2019 6:35:51 PM Referred By: Confirmed By:GIBSON MEDINA MD
[2019-07-01 18:44] VITALS: BP 134/75; PULSE 67; TEMP 97.6
== END 2019-07-01 19:59 | disposition home or self-care (01) ==
LOC: JER 16:31 → JERBED 20:48 → J4W 22:10
PROVIDERS: ADMIT Internal Medicine; ATTEND Hospitalist
PROC: 3E0337Z Introduction of Electrolytic and Water Balance Substance into Peripheral Vein, Percutaneous Approach (ICD-10-PCS; principal; 2019-06-30)
PROC: 3E013GC Introduction of Other Therapeutic Substance into Subcutaneous Tissue, Percutaneous Approach (ICD-10-PCS; 2019-06-30)
DX: R55 Syncope and collapse (principal); S09.90XA Unspecified injury of head, initial encounter; E66.9 Obesity, unspecified; Z68.32 Body mass index [BMI] 32.0-32.9, adult; F10.10 Alcohol abuse, uncomplicated; F31.9 Bipolar disorder, unspecified
CPT/HCPCS: 36415; 70450-TC; 70551-TC; 71046-TC-FY; 80053; 80307; 83735; 84100; 84484; 85025; 93005; 93010; 93880-TC; 96372; 99285-25; G0378; J7030